=== PATIENT | male | born 1985 | race African-American/Black ===

== ENCOUNTER 2024-05-27 21:55 | Emergency (ER) | payer BC ==
[~2024-05-27] VITALS: Ht 185.4 cm; Wt 145.6 kg
[2024-05-27] MEDS ORDERED: ONDANSETRON ODT 4 MG TAB.RAPDIS ONE (23:23)
[2024-05-27] MEDS ORDERED: MECLIZINE HCL 25 MG TABLET ONE (23:23)
[2024-05-27] MEDS: ONDANSETRON ODT 4 MG TAB.RAPDIS SL ONE (23:26)
[2024-05-27] MEDS: MECLIZINE HCL 25 MG TABLET PO ONE (23:26)
[2024-05-27] MEDS ORDERED: ONDA4TAB11 PO (23:49)
[2024-05-27] MEDS ORDERED: MECL-159 PO (23:49)
[2024-05-28 02:07] VITALS: BP 133/78; TEMP 98.2; O2SAT 97
== END 2024-05-28 02:07 | disposition home or self-care (01) ==
LOC: ER 22:04
DX: R42 Dizziness and giddiness (principal); F41.9 Anxiety disorder, unspecified; F12.929 Cannabis use, unspecified with intoxication, unspecified
CPT/HCPCS: A4606; A4663; J8597; Q0162